=== PATIENT | female | born 1985 | race Caucasian/White ===

== ENCOUNTER 2019-07-15 07:38 | Inpatient (IN) ==
[2019-07-16] MEDS ORDERED: OXYTOCIN 30 UNITS/500 ML BAG IV PRN ×2 (08:27→08:33)
[2019-07-16 08:54] LABS: Hematocrit (blood only) 33.6 % (37-47); Hemoglobin 11.2 g/dL (12.0-16.0); Mean Corpuscular Hemoglobin 30.1 pg (25-34); Mean Corpuscular Volume 90.3 fL (80-100); Mean Platelet Volume 11.8 fL (7.4-10.4); Platelet Count 337 K/uL (130-400); RDW Coefficient of Variation 14.3 % (11.5-14.5); RDW Standard Deviation 46.9 fL (36.4-46.3); Red Blood Count 3.72 M/uL (4.2-5.4); White Blood Count 17.91 K/uL (4.8-10.8)
[2019-07-16 08:55] LABS: Mean Corpuscular Hgb Conc 33.3 g/dL (32-36)
--- NOTE | 2019-07-16 08:56 | History & Physical Report ---
Date of Service July 16, 2019 Assessment & Plan (1) Methadone use: (2) Chronic hypertension in : 34yo at 38.6 weeks GA. Presents for IOL for cHTN. 1. Fetus: Cat 1 2. Labor: Will start with SL cytotec 3. Vitals: Mild BPs 4. cHTN: Continue Labetalol 100mg BID. Continue to monitor 5. Methadone: Continue current dose/ UDS 6. Will consult social work History of Present Illness Primary Care Provider: Zach Meza 34yo at 38.6 weeks GA. Presents for IOL for cHTN. Patient course has has been complicated by medication controlled cHTN and is currently on Labetalol 100mg BID. Patient had cerclage in place for cervical insufficiency which was removed at 36 weeks. Patient has hx of substance abuse and is currently on Methadone. GBS -/ O+/ Rubella Immune Allergies Allergy/AdvReac Type Severity Reaction Status Date / Time latex Allergy Rash Verified 07/16/19 08:18 Home Medications Home Medications Medication Instructions Recorded Confirmed Type aspirin 81 mg PO DAILY 07/01/19 07/16/19 History docusate sodium [Colace] 100 mg PO DAILY 07/01/19 07/16/19 History ferrous sulfate [Iron (ferrous 325 mg PO DAILY 07/01/19 07/16/19 History sulfate)] labetalol 100 mg PO BID 07/01/19 07/16/19 History methadone 108 mg PO DAILY 07/01/19 07/16/19 History ondansetron 4 mg PO Q6H PRN 07/01/19 07/16/19 History vit-iron fum-folic ac 1 tab PO DAILY 07/01/19 07/16/19 History [ Vitamin] Patient History Social History Preferred Language: [place] Citizen Communication Ability: 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 Beliefs That Will Affect Care: None marital status: Single Current Living Situation: Significant Other Other Information That Helps Us Care for You: No Feels Safe at Home: Yes Safety Concerns: Feels Safe At This Time Smoking Status: Current every day smoker Tobacco Type: cigarettes ; Cigarettes Per Day: 15 ; Do You Dip or Chew Tobacco: No ; Second Hand Exposure: Yes ; Tobacco Cessation Education Requested by Patient: No Hx Alcohol Use: No Hx Substance Use: Yes substance use type: former substance user Substance Use Type Other:: IV heroin use x 5 years, methadone maintantence for the last 2 years. Last Used Substance: Unknown Physical Exam Constitutional: WD/WN, vitals as above Gastrointestinal (Abdomen): Percussion/Palpation: abdomen soft; abdomen nontender, no guarding and abdomen not rigid Genitourinary: no vaginal lesions, no adnexal mass Manual OB Exam: + cervical dilation 1 cm, + cervical effacement 30% and + station high OB Exam Monitor Tracing: + external FHT monitor used, + external uterine monitor used and + category I Results & Data Vital Signs (Past 12 Hours) Vital Signs Pulse BP 07/16/19 08:45 89 143/100 H 07/16/19 08:34 82 132/86 07/16/19 08:24 88 151/96 H
[2019-07-16] MEDS ORDERED: miSOPROStoL 50 MCG TAB SL SCH (09:00)
[2019-07-16] MEDS ORDERED: LABETALOL HCL 100 MG TAB PO SCH (09:00)
[2019-07-16] MEDS: METHADONE ORAL SOLN 2 MG/ML PO SCH (09:54)
[2019-07-16 10:07] LABS: Amphetamines+Metham, Urine Neg (Neg); Barbiturates, Urine Neg (Neg); Benzodiazepine, Urine Neg (Neg); Cocaine, Urine Neg (Neg); MDMA (Ecstacy), Urine Pos (Neg); Methadone, Urine Pos (Neg); Opiate, Urine Neg (Neg); Phencyclidine, Urine Neg (Neg)
[2019-07-16] MEDS ORDERED: INFLUENZA VIRUS QUAD VACCINE 0.5 ML SYR IM ONE (10:45)
[2019-07-16] MEDS ORDERED: INFLUENZA ADMINISTRATION CHARGE ONE (10:45)
[2019-07-16] MEDS ORDERED: CALCIUM CARBONATE 500 MG CHEWABLE TAB PO PRN (12:59)
[2019-07-16] MEDS: LACTATED RINGER'S 1,000 ML IV PRN ×2 (14:32→17:17)
[2019-07-16] MEDS: PATIENT'S OWN CONTROLLED MED PO SCH (15:40)
[2019-07-16] MEDS ORDERED: BUPIVACAINE 0.25% 30 ML VIAL ONE (16:45)
[2019-07-16] MEDS ORDERED: fentaNYL citrate 100 MCG/2 ML VIAL ONE (16:46)
[2019-07-16] MEDS ORDERED: ePHEDrine sulfate 50 MG/ML AMP ONE (16:46)
[2019-07-16] MEDS ORDERED: fentaNYL 2MCG/ML ROPIV 1.25MG/ML 100 ML BAG EPI ONE (16:46)
--- NOTE | 2019-07-16 17:07 | Anesthesiology Consultation ---
Date of Service July 16, 2019 Assessment & Plan (1) Encounter for pre-operative examination: Chart Review Chart Review: Acceptable Risk for Surgery and Acceptable Risk for Labor Epidural History Height/Weight Height: 5 ft 3 in Weight: 112.038 kg Allergies Allergy/AdvReac Type Severity Reaction Status Date / Time latex Allergy Rash Verified 07/16/19 08:18 Medications Home Medications Medication Instructions Recorded Confirmed Last Taken aspirin 81 mg PO DAILY 07/01/19 07/16/19 07/15/19 22:00 docusate sodium [Colace] 100 mg PO DAILY 07/01/19 07/16/19 07/15/19 22:00 ferrous sulfate [Iron (ferrous 325 mg PO DAILY 07/01/19 07/16/19 07/15/19 22:00 sulfate)] labetalol 100 mg PO BID 07/01/19 07/16/19 07/16/19 05:30 methadone 108 mg PO DAILY 07/01/19 07/16/19 07/16/19 05:30 ondansetron 4 mg PO Q6H PRN 07/01/19 07/16/19 07/16/19 04:30 vit-iron fum-folic ac 1 tab PO DAILY 07/01/19 07/16/19 07/15/19 22:00 [ Vitamin] Active Medications Generic Name Dose Route Start Last Admin Trade Name Coltenq PRN Reason Stop Dose Admin Calcium Carbonate 1,500 mg 07/16/19 12:59 07/16/19 14:32 Tums PO 08/15/19 12:58 1,500 mg BID PRN Administration Indigestion Lactated Ringer's 1,000 mls @ 125 mls/hr 07/16/19 08:27 07/16/19 16:35 Lr IV 07/18/19 08:26 999 mls/hr .Q8H PRN Infusion L&D Protocol Protocol Oxytocin 30 units in 500 mls @ 10 mls/hr 07/16/19 08:33 07/16/19 16:35 Pitocin IV 07/18/19 08:32 0.6 units/hr .Q24H PRN 10 mls/hr Labor Induction/Augmentation Titration Protocol 0.6 UNITS/HR Labetalol HCl 100 mg 07/16/19 09:00 07/16/19 09:54 Normodyne PO 08/15/19 08:59 Not Given BID DILSHAD Methadone HCl 108 mg 07/16/19 09:00 07/16/19 09:54 Methadone Hcl PO 07/30/19 08:59 Not Given DAILY DILSHAD Misoprostol 50 mcg 07/16/19 09:00 07/16/19 09:32 Cytotec SL 08/15/19 08:59 50 mcg BID DILSHAD Administration Non-Formulary Medication 1 ea 07/16/19 10:00 07/16/19 15:40 Patient's Own Controlled Med PO 07/30/19 09:59 Not Given DAILY DILSHAD Past Medical History Medical History History of cervical cerclage, currently Anxiety and depression No medications Chronic hypertension Exposure to hepatitis C tested positive, restest was negative H/O wisdom tooth extraction Heart murmur history History of chlamydia treated, negative during Iron deficiency anemia Methadone maintenance therapy patient Managed by [facility] [place] [facility] [place] Past Family History Family History Mother Heart disease Hypertension Thyroid disease Uncle Heart disease Grandfather (Maternal) Heart disease Grandmother (Maternal) Heart disease Aunt Stroke Diabetes Grandfather (Paternal) Diabetes Father Fibromyalgia Thyroid disease Dyslipidemia Past Surgical History Surgical History Hx of cerclage, currently H/O hernia repair History of oral surgery History of splenectomy S/P dilatation and curettage Social History Smoking Status: Current every day smoker tobacco type: cigarettes Smoking cigarettes per day: 15 Do You Dip or Chew Tobacco: No Hx Alcohol Use: No Hx Substance Use: Yes substance use type: former substance user Substance Use Type Other:: IV heroin use x 5 years, methadone maintantence for the last 2 years. Last Used Substance: Unknown Physical Exam Vital Signs Last Vital Signs Temp 36.7 C 07/16/19 17:01 Pulse 66 07/16/19 17:05 Resp 20 07/16/19 17:01 BP 175/105 H 07/16/19 16:35 Pulse Ox 94 07/16/19 17:05 Testing Laboratory Results 07/16/19 08:46
[2019-07-16] MEDS ORDERED: NALOXONE HCL 0.4 MG/1 ML VIAL/CARP IV PRN (17:40)
[2019-07-16] MEDS ORDERED: ePHEDrine sulfate 50 MG/ML AMP IV PRN (17:40)
[2019-07-16] MEDS ORDERED: NALOXONE HCL 1 MG in SODIUM CHLORIDE 0.9% 1000ML 1,000 ML IV PRN (17:40)
--- NOTE | 2019-07-16 18:06 | Labor Progress Brief Note ---
Date of Service July 16, 2019 Subjective Reason For Note: Routine Evaluation Assessment & Plan (1) Methadone use: (2) Chronic hypertension in : 34yo at 38.6 weeks GA. Presents for IOL for cHTN. 1. Fetus: Cat 1 2. Labor: S/p SL cytotec, AROM clr, continue oxytocin 3. Vitals: Mostly Mild BPs. Occasional severe range BPs. PIH labs P. Asymptomatic 4. cHTN: Continue Labetalol 100mg BID. Continue to monitor 5. Methadone: Continue current dose/ UDS 6. Will consult social work Physical Exam Genitourinary: Manual OB Exam: + cervical dilation 3 cm, + cervical effacement 60%, + station -2 and + amniotic fluid clear OB Exam Monitor Tracing: + external FHT monitor used, + external uterine monitor used and + category I Results & Data Vital Signs (Past 12 Hours) Vital Signs Temp Pulse Resp BP Pulse Ox 07/16/19 18:00 70 96 07/16/19 17:58 68 151/91 H 07/16/19 17:55 80 144/82 H 97 07/16/19 17:50 74 97 07/16/19 17:46 88 143/81 H 07/16/19 17:45 71 96 07/16/19 17:44 70 145/80 H 07/16/19 17:42 80 150/82 H 07/16/19 17:40 71 148/75 H 96 07/16/19 17:38 65 146/75 H 07/16/19 17:36 76 150/70 H 07/16/19 17:35 75 151/65 H 96 07/16/19 17:32 75 183/99 H 07/16/19 17:30 81 97 07/16/19 17:25 84 99 07/16/19 17:20 93 H 98 07/16/19 17:15 81 100 07/16/19 17:10 76 93 07/16/19 17:09 75 99 07/16/19 17:05 66 94 07/16/19 17:04 69 95 07/16/19 17:01 36.7 C 20 07/16/19 16:35 79 175/105 H 07/16/19 15:35 79 171/84 H 07/16/19 14:35 81 142/88 H 07/16/19 12:10 36.7 C 78 20 128/64 07/16/19 08:52 36.7 C 20 07/16/19 08:45 89 143/100 H 07/16/19 08:34 82 132/86 07/16/19 08:24 88 151/96 H
[2019-07-16] MEDS ORDERED: LABETALOL HCL IV 5 MG/ML 20ML IV STA (19:09)
[2019-07-16] MEDS ORDERED: LABETALOL HCL IV 5 MG/ML 20ML IV ONE (19:11)
[2019-07-16 19:26] LABS: Basophils # (auto) 0.05 K/uL (0-0.2); Basophils % (auto) 0.3 %; Eosinophils # (auto) 0.23 K/uL (0-0.5); Eosinophils % (auto) 1.3 %; Hematocrit (blood only) 32.5 % (37-47); Hemoglobin 10.7 g/dL (12.0-16.0); Immature Granulocytes # (auto) 0.12 K/uL (0.00-0.02); Immature Granulocytes % (auto) 0.7 %; Lymphocytes % (auto) 19.2 %; Mean Corpuscular Hemoglobin 29.7 pg (25-34); Mean Corpuscular Volume 90.3 fL (80-100); Mean Platelet Volume 11.8 fL (7.4-10.4); Monocytes # (auto) 2.03 K/uL (0.11-0.59); Monocytes % (auto) 11.2 %; Neutrophils # (auto) 12.26 K/uL (1.4-6.5); Neutrophils % (auto) 67.3 %; Platelet Count 304 K/uL (130-400); RDW Coefficient of Variation 14.4 % (11.5-14.5); RDW Standard Deviation 47.5 fL (36.4-46.3); White Blood Count 18.19 K/uL (4.8-10.8)
[2019-07-16 19:44] LABS: Est GFR (African American) 141.2; Est GFR (Non-African American) 121.8
[2019-07-16] MEDS: LABETALOL HCL 200 MG TAB PO SCH (19:44)
[2019-07-16 19:46] LABS: Mean Corpuscular Hgb Conc 32.9 g/dL (32-36)
[2019-07-16] MEDS: ONDANSETRON INJ 2 MG/ML 2 ML VIAL IV PRN (19:48)
[2019-07-16] MEDS: fentaNYL 2MCG/ML ROPIV 1.25MG/ML 100 ML BAG EPI PRN (20:20)
[2019-07-16] MEDS ORDERED: Nursing to Pharmacy Communication ONE (20:36)
[2019-07-16] MEDS ORDERED: LIDOCAINE/EPINEPHRINE 2% 1:200,000 20 ML SDV ONE (21:10)
--- NOTE | 2019-07-16 23:48 | Labor Progress Brief Note ---
Date of Service July 16, 2019 Subjective Reason For Note: Routine Evaluation Assessment & Plan (1) Methadone use: (2) Chronic hypertension in : 34yo at 38.6 weeks GA. Presents for IOL for cHTN. 1. Fetus: Cat 1 2. Labor: S/p SL cytotec, AROM clr, continue oxytocin 3. Vitals: Mostly Mild BPs. Occasional severe range BPs. PIH labs WNL. Asymptomatic 4. cHTN: Continue Labetalol 200mg BID. Continue to monitor 5. Methadone: Continue current dose/ UDS 6. Will consult social work Physical Exam Genitourinary: OB Exam Abdomen: + vertex Manual OB Exam: + cervical dilation (4-5), + cervical effacement 70%, + station -2 and + amniotic fluid clear OB Exam Monitor Tracing: + external FHT monitor used, + intra-uterine pressure catheter used and + category I Results & Data Vital Signs (Past 12 Hours) Vital Signs Temp Pulse Resp BP Pulse Ox 07/16/19 23:41 74 98 07/16/19 23:39 75 144/73 H 07/16/19 23:36 73 96 07/16/19 23:31 73 96 07/16/19 23:26 70 97 07/16/19 23:25 69 164/75 H 07/16/19 23:21 70 97 07/16/19 23:16 69 97 07/16/19 23:11 87 97 07/16/19 23:08 80 143/86 H 07/16/19 23:06 72 96 07/16/19 23:01 77 97 07/16/19 23:00 18 07/16/19 22:56 76 96 07/16/19 22:53 74 158/80 H 07/16/19 22:51 73 97 07/16/19 22:46 73 96 07/16/19 22:41 71 95 07/16/19 22:38 69 151/72 H 07/16/19 22:36 81 97 07/16/19 22:31 83 95 07/16/19 22:30 18 07/16/19 22:26 69 93 07/16/19 22:23 71 137/70 07/16/19 22:21 75 93 07/16/19 22:16 68 94 07/16/19 22:11 74 92 07/16/19 22:09 70 145/74 H 07/16/19 22:06 74 93 07/16/19 22:01 73 95 07/16/19 22:00 18 07/16/19 21:56 69 93 07/16/19 21:55 68 156/74 H 07/16/19 21:51 70 91 07/16/19 21:47 72 91 07/16/19 21:46 70 91 07/16/19 21:42 73 90 07/16/19 21:41 71 91 07/16/19 21:39 69 149/72 H 07/16/19 21:36 71 91 07/16/19 21:35 71 91 07/16/19 21:34 68 142/73 H 07/16/19 21:31 70 90 07/16/19 21:30 18 07/16/19 21:28 72 157/82 H 07/16/19 21:26 70 91 07/16/19 21:25 68 146/78 H 91 07/16/19 21:21 71 91 07/16/19 21:20 67 165/81 H 91 07/16/19 21:16 71 95 07/16/19 21:13 36.7 C 66 164/84 H 07/16/19 21:11 66 161/84 H 96 07/16/19 21:09 67 170/88 H 07/16/19 21:07 64 172/87 H 07/16/19 21:06 64 97 07/16/19 21:05 67 172/85 H 07/16/19 21:03 65 173/84 H 07/16/19 21:01 70 183/89 H 96 07/16/19 20:59 75 149/87 H 07/16/19 20:56 71 95 07/16/19 20:51 76 98 07/16/19 20:49 72 145/79 H 07/16/19 20:46 83 96 07/16/19 20:41 73 97 07/16/19 20:40 73 159/81 H 07/16/19 20:36 77 97 07/16/19 20:31 73 96 07/16/19 20:30 18 07/16/19 20:29 72 172/89 H 07/16/19 20:26 79 97 07/16/19 20:20 73 96 07/16/19 20:16 83 156/66 H 07/16/19 20:15 81 97 07/16/19 20:10 71 97 07/16/19 20:09 82 161/79 H 07/16/19 20:05 70 159/77 H 95 07/16/19 20:00 67 18 152/72 H 96 07/16/19 19:55 73 96 07/16/19 19:54 71 153/74 H 07/16/19 19:50 71 96 07/16/19 19:49 70 143/67 H 07/16/19 19:45 71 97 07/16/19 19:44 70 142/65 H 07/16/19 19:41 68 152/70 H 07/16/19 19:40 68 97 07/16/19 19:35 71 98 07/16/19 19:33 75 157/68 H 07/16/19 19:31 69 155/71 H 07/16/19 19:30 69 99 07/16/19 19:29 68 174/75 H 07/16/19 19:25 72 149/68 H 99 07/16/19 19:20 68 99 07/16/19 19:15 75 98 07/16/19 19:14 36.6 C 07/16/19 19:11 69 191/85 H 07/16/19 19:10 69 98 07/16/19 19:05 70 98 07/16/19 19:04 73 171/94 H 07/16/19 19:00 72 98 07/16/19 18:55 74 96 07/16/19 18:54 72 183/97 H 07/16/19 18:50 71 97 07/16/19 18:45 69 96 07/16/19 18:40 74 171/90 H 93 07/16/19 18:36 76 89 L 07/16/19 18:35 74 96 07/16/19 18:30 70 97 07/16/19 18:25 73 174/90 H 96 07/16/19 18:20 72 96 07/16/19 18:15 75 97 07/16/19 18:10 79 97 07/16/19 18:09 71 148/78 H 07/16/19 18:05 73 97 07/16/19 18:03 74 164/91 H 07/16/19 18:00 70 96 07/16/19 17:58 68 151/91 H 07/16/19 17:55 80 144/82 H 97 07/16/19 17:50 74 97 07/16/19 17:46 88 143/81 H 07/16/19 17:45 71 96 07/16/19 17:44 70 145/80 H 07/16/19 17:42 80 150/82 H 07/16/19 17:40 71 148/75 H 96 07/16/19 17:38 65 146/75 H 07/16/19 17:36 76 150/70 H 07/16/19 17:35 75 151/65 H 96 07/16/19 17:32 75 183/99 H 07/16/19 17:30 81 97 07/16/19 17:25 84 99 07/16/19 17:20 93 H 98 07/16/19 17:15 81 100 07/16/19 17:10 76 93 07/16/19 17:09 75 99 07/16/19 17:05 66 94 07/16/19 17:04 69 95 07/16/19 17:01 36.7 C 20 07/16/19 16:35 79 175/105 H 07/16/19 15:35 79 171/84 H 07/16/19 14:35 81 142/88 H 07/16/19 12:10 36.7 C 78 20 128/64
[2019-07-17] MEDS: LACTATED RINGER'S 1,000 ML IV PRN ×2 (00:15→05:30)
[2019-07-17] MEDS: fentaNYL 2MCG/ML ROPIV 1.25MG/ML 100 ML BAG EPI PRN ×2 (00:35→05:20)
[2019-07-17] MEDS: ONDANSETRON INJ 2 MG/ML 2 ML VIAL IV PRN ×2 (03:02→09:06)
--- NOTE | 2019-07-17 03:53 | Labor Progress Brief Note ---
Date of Service July 17, 2019 Subjective Reason For Note: Routine Evaluation Assessment & Plan (1) Methadone use: (2) Chronic hypertension in : 34yo at 38.6 weeks GA. Presents for IOL for cHTN. 1. Fetus: Cat 1 2. Labor: S/p SL cytotec, AROM clr, continue oxytocin 3. Vitals: Mostly Mild BPs. severe range BPs while patient is painful. comfortable now will continue to monitor. PIH labs WNL. Asymptomatic 4. cHTN: Continue Labetalol 200mg BID. Continue to monitor 5. Methadone: Continue current dose/ UDS 6. Will consult social work Physical Exam Genitourinary: Manual OB Exam: + cervical dilation (5.5), + cervical effacement 80%, + station -2 and + amniotic fluid clear OB Exam Monitor Tracing: + external FHT monitor used, + intra-uterine pressure catheter used and + category I Results & Data Vital Signs (Past 12 Hours) Vital Signs Temp Pulse Resp BP Pulse Ox 07/17/19 03:46 88 96 07/17/19 03:41 79 95 07/17/19 03:39 77 175/88 H 07/17/19 03:37 73 91 07/17/19 03:36 75 91 07/17/19 03:35 71 168/80 H 07/17/19 03:33 71 173/79 H 07/17/19 03:32 73 173/85 H 89 L 07/17/19 03:31 73 92 07/17/19 03:30 75 171/82 H 07/17/19 03:29 72 181/89 H 07/17/19 03:28 74 183/87 H 07/17/19 03:26 80 168/84 H 100 07/17/19 03:24 75 172/88 H 07/17/19 03:21 83 99 07/17/19 03:16 75 98 07/17/19 03:11 80 97 07/17/19 03:10 88 178/105 H 07/17/19 03:06 79 98 07/17/19 03:01 86 99 07/17/19 02:56 78 98 07/17/19 02:55 84 174/80 H 07/17/19 02:51 88 99 07/17/19 02:47 86 86 L 07/17/19 02:46 83 95 07/17/19 02:41 76 96 07/17/19 02:38 73 176/81 H 07/17/19 02:36 86 93 07/17/19 02:31 86 95 07/17/19 02:26 74 97 07/17/19 02:23 78 175/103 H 07/17/19 02:21 87 98 07/17/19 02:16 82 99 07/17/19 02:11 77 99 07/17/19 02:08 85 165/100 H 07/17/19 02:06 81 99 07/17/19 02:01 85 99 07/17/19 01:56 91 H 100 07/17/19 01:53 93 H 162/95 H 07/17/19 01:51 85 94 07/17/19 01:46 94 H 99 07/17/19 01:41 90 99 07/17/19 01:38 68 153/85 H 07/17/19 01:36 80 98 07/17/19 01:31 95 H 98 07/17/19 01:26 84 98 07/17/19 01:24 75 177/82 H 07/17/19 01:21 76 98 07/17/19 01:16 81 98 07/17/19 01:11 85 98 07/17/19 01:09 71 168/80 H 07/17/19 01:06 81 97 07/17/19 01:01 75 95 07/17/19 00:56 74 94 07/17/19 00:53 75 141/77 H 89 L 07/17/19 00:51 74 94 07/17/19 00:46 76 96 07/17/19 00:41 94 H 96 07/17/19 00:38 71 135/70 07/17/19 00:36 70 94 07/17/19 00:31 77 96 07/17/19 00:26 71 95 07/17/19 00:23 71 128/68 07/17/19 00:21 72 97 07/17/19 00:19 68 154/71 H 07/17/19 00:16 77 95 07/17/19 00:12 76 167/79 H 07/17/19 00:11 81 163/72 H 98 07/17/19 00:10 93 H 165/81 H 07/17/19 00:09 81 155/75 H 07/17/19 00:06 75 97 07/17/19 00:01 79 97 07/16/19 23:56 81 97 07/16/19 23:53 82 146/73 H 07/16/19 23:51 82 95 07/16/19 23:46 70 96 07/16/19 23:41 74 98 07/16/19 23:39 75 144/73 H 07/16/19 23:36 73 96 07/16/19 23:31 73 96 07/16/19 23:26 70 97 07/16/19 23:25 69 164/75 H 07/16/19 23:21 70 97 07/16/19 23:16 69 97 07/16/19 23:11 87 97 07/16/19 23:08 80 143/86 H 07/16/19 23:06 72 96 07/16/19 23:01 77 97 07/16/19 23:00 18 07/16/19 22:56 76 96 07/16/19 22:53 74 158/80 H 07/16/19 22:51 73 97 07/16/19 22:46 73 96 07/16/19 22:41 71 95 07/16/19 22:38 69 151/72 H 07/16/19 22:36 81 97 07/16/19 22:31 83 95 07/16/19 22:30 18 07/16/19 22:26 69 93 07/16/19 22:23 71 137/70 07/16/19 22:21 75 93 07/16/19 22:16 68 94 07/16/19 22:11 74 92 07/16/19 22:09 70 145/74 H 07/16/19 22:06 74 93 07/16/19 22:01 73 95 07/16/19 22:00 18 07/16/19 21:56 69 93 07/16/19 21:55 68 156/74 H 07/16/19 21:51 70 91 07/16/19 21:47 72 91 07/16/19 21:46 70 91 07/16/19 21:42 73 90 07/16/19 21:41 71 91 07/16/19 21:39 69 149/72 H 07/16/19 21:36 71 91 07/16/19 21:35 71 91 07/16/19 21:34 68 142/73 H 07/16/19 21:31 70 90 07/16/19 21:30 18 07/16/19 21:28 72 157/82 H 07/16/19 21:26 70 91 07/16/19 21:25 68 146/78 H 91 07/16/19 21:21 71 91 07/16/19 21:20 67 165/81 H 91 07/16/19 21:16 71 95 07/16/19 21:13 36.7 C 66 164/84 H 07/16/19 21:11 66 161/84 H 96 07/16/19 21:09 67 170/88 H 07/16/19 21:07 64 172/87 H 07/16/19 21:06 64 97 07/16/19 21:05 67 172/85 H 07/16/19 21:03 65 173/84 H 07/16/19 21:01 70 183/89 H 96 07/16/19 20:59 75 149/87 H 07/16/19 20:56 71 95 07/16/19 20:51 76 98 07/16/19 20:49 72 145/79 H 07/16/19 20:46 83 96 07/16/19 20:41 73 97 07/16/19 20:40 73 159/81 H 07/16/19 20:36 77 97 07/16/19 20:31 73 96 07/16/19 20:30 18 07/16/19 20:29 72 172/89 H 07/16/19 20:26 79 97 07/16/19 20:20 73 96 07/16/19 20:16 83 156/66 H 07/16/19 20:15 81 97 07/16/19 20:10 71 97 07/16/19 20:09 82 161/79 H 07/16/19 20:05 70 159/77 H 95 07/16/19 20:00 67 18 152/72 H 96 07/16/19 19:55 73 96 07/16/19 19:54 71 153/74 H 07/16/19 19:50 71 96 07/16/19 19:49 70 143/67 H 07/16/19 19:45 71 97 07/16/19 19:44 70 142/65 H 07/16/19 19:41 68 152/70 H 07/16/19 19:40 68 97 07/16/19 19:35 71 98 07/16/19 19:33 75 157/68 H 07/16/19 19:31 69 155/71 H 07/16/19 19:30 69 99 07/16/19 19:29 68 174/75 H 07/16/19 19:25 72 149/68 H 99 07/16/19 19:20 68 99 07/16/19 19:15 75 98 07/16/19 19:14 36.6 C 07/16/19 19:11 69 191/85 H 07/16/19 19:10 69 98 07/16/19 19:05 70 98 07/16/19 19:04 73 171/94 H 07/16/19 19:00 72 98 07/16/19 18:55 74 96 07/16/19 18:54 72 183/97 H 07/16/19 18:50 71 97 07/16/19 18:45 69 96 07/16/19 18:40 74 171/90 H 93 07/16/19 18:36 76 89 L 07/16/19 18:35 74 96 07/16/19 18:30 70 97 07/16/19 18:25 73 174/90 H 96 07/16/19 18:20 72 96 07/16/19 18:15 75 97 07/16/19 18:10 79 97 07/16/19 18:09 71 148/78 H 07/16/19 18:05 73 97 07/16/19 18:03 74 164/91 H 07/16/19 18:00 70 96 07/16/19 17:58 68 151/91 H 07/16/19 17:55 80 144/82 H 97 07/16/19 17:50 74 97 07/16/19 17:46 88 143/81 H 07/16/19 17:45 71 96 07/16/19 17:44 70 145/80 H 07/16/19 17:42 80 150/82 H 07/16/19 17:40 71 148/75 H 96 07/16/19 17:38 65 146/75 H 07/16/19 17:36 76 150/70 H 07/16/19 17:35 75 151/65 H 96 07/16/19 17:32 75 183/99 H 07/16/19 17:30 81 97 07/16/19 17:25 84 99 07/16/19 17:20 93 H 98 07/16/19 17:15 81 100 07/16/19 17:10 76 93 07/16/19 17:09 75 99 07/16/19 17:05 66 94 07/16/19 17:04 69 95 07/16/19 17:01 36.7 C 20 07/16/19 16:35 79 175/105 H
[2019-07-17] MEDS ORDERED: fentaNYL citrate 100 MCG/2 ML VIAL ONE ×2 (07:50→08:02)
[2019-07-17] MEDS ORDERED: BUPIVACAINE 0.25% 30 ML VIAL ONE (07:50)
--- NOTE | 2019-07-17 07:56 | Labor Progress Brief Note ---
Date of Service July 17, 2019 Subjective Reason For Note: Routine Evaluation Assessment & Plan (1) Methadone use: (2) Chronic hypertension in : 34yo at 38.6 weeks GA. Presents for IOL for cHTN. 1. Fetus: Cat 1 2. Labor: S/p SL cytotec, AROM clr, continue oxytocin 3. Vitals: Mostly Mild BPs. severe range BPs while patient is painful. comfortable now will continue to monitor. PIH labs WNL. Asymptomatic 4. cHTN: Continue Labetalol 200mg BID. Continue to monitor 5. Methadone: Continue current dose/ UDS 6. Will consult social work Physical Exam Genitourinary: Manual OB Exam: + cervical dilation 6 cm, + cervical effacement 90%, + station 0 and + amniotic fluid clear OB Exam Monitor Tracing: + scalp electrode used, + intra-uterine pressure catheter used, + category I and + normal FHT variability Results & Data Vital Signs (Past 12 Hours) Vital Signs Temp Pulse Resp BP Pulse Ox 07/17/19 07:53 90 150/73 H 07/17/19 07:51 89 98 07/17/19 07:46 79 97 07/17/19 07:42 104 H 90 07/17/19 07:41 96 H 92 07/17/19 07:39 97 H 174/89 H 07/17/19 07:36 86 98 07/17/19 07:31 36.9 C 81 40 H 98 07/17/19 07:26 73 94 07/17/19 07:24 75 170/75 H 07/17/19 07:21 74 96 07/17/19 07:16 85 97 07/17/19 07:11 79 94 07/17/19 07:09 69 166/85 H 07/17/19 07:06 80 96 07/17/19 07:01 74 95 07/17/19 06:56 91 H 96 07/17/19 06:55 97 H 88 L 07/17/19 06:53 78 167/89 H 07/17/19 06:51 89 94 07/17/19 06:46 82 94 07/17/19 06:41 81 91 07/17/19 06:38 98 H 165/89 H 91 07/17/19 06:36 74 92 07/17/19 06:32 77 91 07/17/19 06:31 71 92 07/17/19 06:27 75 91 07/17/19 06:26 74 91 07/17/19 06:25 75 146/81 H 07/17/19 06:21 79 92 07/17/19 06:16 74 93 07/17/19 06:11 74 92 07/17/19 06:10 71 159/83 H 89 L 07/17/19 06:08 67 169/91 H 07/17/19 06:06 76 168/87 H 95 07/17/19 06:05 36.6 C 20 07/17/19 06:03 75 91 07/17/19 06:01 76 170/84 H 93 07/17/19 06:00 85 167/83 H 07/17/19 05:59 74 171/87 H 07/17/19 05:57 76 168/86 H 91 07/17/19 05:56 72 91 07/17/19 05:55 86 181/88 H 07/17/19 05:54 73 165/82 H 07/17/19 05:53 86 177/90 H 07/17/19 05:51 67 89 L 07/17/19 05:50 75 174/86 H 07/17/19 05:48 83 185/94 H 07/17/19 05:47 84 165/89 H 07/17/19 05:46 97 H 97 07/17/19 05:41 88 98 07/17/19 05:40 76 172/89 H 07/17/19 05:36 95 H 100 07/17/19 05:31 84 96 07/17/19 05:26 80 95 07/17/19 05:24 76 137/70 07/17/19 05:21 84 93 07/17/19 05:16 77 96 07/17/19 05:11 78 96 07/17/19 05:08 75 161/72 H 07/17/19 05:06 87 94 07/17/19 05:04 36.8 C 24 07/17/19 05:01 79 94 07/17/19 04:56 86 96 07/17/19 04:53 78 177/84 H 90 07/17/19 04:51 77 93 07/17/19 04:46 78 92 07/17/19 04:45 76 91 07/17/19 04:41 75 91 07/17/19 04:39 74 160/81 H 88 L 07/17/19 04:36 74 94 07/17/19 04:31 71 93 07/17/19 04:26 82 93 07/17/19 04:24 73 91 07/17/19 04:23 75 156/74 H 07/17/19 04:21 74 92 07/17/19 04:19 73 91 07/17/19 04:16 71 91 07/17/19 04:11 74 91 07/17/19 04:09 72 154/72 H 07/17/19 04:06 76 92 07/17/19 04:01 74 91 07/17/19 04:00 36.8 C 72 18 96 07/17/19 03:56 73 93 07/17/19 03:53 72 159/77 H 90 07/17/19 03:51 72 94 07/17/19 03:46 88 96 07/17/19 03:41 79 95 07/17/19 03:39 77 175/88 H 07/17/19 03:37 73 91 07/17/19 03:36 75 91 07/17/19 03:35 71 168/80 H 07/17/19 03:33 71 173/79 H 07/17/19 03:32 73 173/85 H 89 L 07/17/19 03:31 73 92 07/17/19 03:30 75 171/82 H 07/17/19 03:29 72 181/89 H 07/17/19 03:28 74 183/87 H 07/17/19 03:26 80 168/84 H 100 07/17/19 03:24 75 172/88 H 07/17/19 03:21 83 99 07/17/19 03:16 75 98 07/17/19 03:11 80 97 07/17/19 03:10 88 178/105 H 07/17/19 03:06 79 98 07/17/19 03:01 86 99 07/17/19 03:00 18 07/17/19 02:56 78 98 07/17/19 02:55 84 174/80 H 07/17/19 02:51 88 99 07/17/19 02:47 86 86 L 07/17/19 02:46 83 95 07/17/19 02:41 76 96 07/17/19 02:38 73 176/81 H 07/17/19 02:36 86 93 07/17/19 02:31 86 95 07/17/19 02:26 74 97 07/17/19 02:23 78 175/103 H 07/17/19 02:21 87 98 07/17/19 02:16 82 99 07/17/19 02:11 77 99 07/17/19 02:08 85 165/100 H 07/17/19 02:06 81 99 07/17/19 02:01 85 99 07/17/19 02:00 36.6 C 20 95 07/17/19 01:56 91 H 100 07/17/19 01:53 93 H 162/95 H 07/17/19 01:51 85 94 07/17/19 01:46 94 H 99 07/17/19 01:41 90 99 07/17/19 01:38 68 153/85 H 07/17/19 01:36 80 98 07/17/19 01:31 95 H 98 07/17/19 01:26 84 98 07/17/19 01:24 75 177/82 H 07/17/19 01:21 76 98 07/17/19 01:16 81 98 07/17/19 01:11 85 98 07/17/19 01:09 71 168/80 H 07/17/19 01:06 81 97 07/17/19 01:01 75 95 07/17/19 01:00 18 07/17/19 00:56 74 94 07/17/19 00:53 75 141/77 H 89 L 07/17/19 00:51 74 94 07/17/19 00:46 76 96 07/17/19 00:41 94 H 96 07/17/19 00:38 71 135/70 07/17/19 00:36 70 94 07/17/19 00:31 77 96 07/17/19 00:26 71 95 07/17/19 00:23 71 128/68 07/17/19 00:21 72 97 07/17/19 00:19 68 154/71 H 07/17/19 00:16 77 95 07/17/19 00:12 76 167/79 H 07/17/19 00:11 81 163/72 H 98 07/17/19 00:10 93 H 165/81 H 07/17/19 00:09 81 155/75 H 07/17/19 00:06 75 97 07/17/19 00:01 79 97 07/17/19 00:00 36.8 C 20 95 07/16/19 23:56 81 97 07/16/19 23:53 82 146/73 H 07/16/19 23:51 82 95 07/16/19 23:46 70 96 07/16/19 23:41 74 98 07/16/19 23:39 75 144/73 H 07/16/19 23:36 73 96 07/16/19 23:31 73 96 07/16/19 23:26 70 97 07/16/19 23:25 69 164/75 H 07/16/19 23:21 70 97 07/16/19 23:16 69 97 07/16/19 23:11 87 97 07/16/19 23:08 80 143/86 H 07/16/19 23:06 72 96 07/16/19 23:01 77 97 07/16/19 23:00 18 07/16/19 22:56 76 96 07/16/19 22:53 74 158/80 H 07/16/19 22:51 73 97 07/16/19 22:46 73 96 07/16/19 22:41 71 95 07/16/19 22:38 69 151/72 H 07/16/19 22:36 81 97 07/16/19 22:31 83 95 07/16/19 22:30 18 07/16/19 22:26 69 93 07/16/19 22:23 71 137/70 07/16/19 22:21 75 93 07/16/19 22:16 68 94 07/16/19 22:11 74 92 07/16/19 22:09 70 145/74 H 07/16/19 22:06 74 93 07/16/19 22:01 73 95 07/16/19 22:00 18 07/16/19 21:56 69 93 07/16/19 21:55 68 156/74 H 07/16/19 21:51 70 91 07/16/19 21:47 72 91 07/16/19 21:46 70 91 07/16/19 21:42 73 90 07/16/19 21:41 71 91 07/16/19 21:39 69 149/72 H 07/16/19 21:36 71 91 07/16/19 21:35 71 91 07/16/19 21:34 68 142/73 H 07/16/19 21:31 70 90 07/16/19 21:30 18 07/16/19 21:28 72 157/82 H 07/16/19 21:26 70 91 07/16/19 21:25 68 146/78 H 91 07/16/19 21:21 71 91 07/16/19 21:20 67 165/81 H 91 07/16/19 21:16 71 95 07/16/19 21:13 36.7 C 66 164/84 H 07/16/19 21:11 66 161/84 H 96 07/16/19 21:09 67 170/88 H 07/16/19 21:07 64 172/87 H 07/16/19 21:06 64 97 07/16/19 21:05 67 172/85 H 07/16/19 21:03 65 173/84 H 07/16/19 21:01 70 183/89 H 96 07/16/19 20:59 75 149/87 H 07/16/19 20:56 71 95 07/16/19 20:51 76 98 07/16/19 20:49 72 145/79 H 07/16/19 20:46 83 96 07/16/19 20:41 73 97 07/16/19 20:40 73 159/81 H 07/16/19 20:36 77 97 07/16/19 20:31 73 96 07/16/19 20:30 18 07/16/19 20:29 72 172/89 H 07/16/19 20:26 79 97 07/16/19 20:20 73 96 07/16/19 20:16 83 156/66 H 07/16/19 20:15 81 97 07/16/19 20:10 71 97 07/16/19 20:09 82 161/79 H 07/16/19 20:05 70 159/77 H 95 07/16/19 20:00 67 18 152/72 H 96 07/16/19 19:55 73 96
[2019-07-17] MEDS ORDERED: CARBOPROST TROMETHAMINE 250 MCG/ML AMPUL ONE (08:29)
--- NOTE | 2019-07-17 08:49 | Delivery Summary ---
Vaginal Delivery Summary Date of Service July 17, 2019 Vaginal Delivery Summary Vaginal Delivery Summary: Pre-delivery diagnoses: 34yo @ 38w2d, IOL for cHTN, methadone use, cervical insufficiency with cerclage during this , exposure to Hep C (negative testing) Post-delivery diagnoses: same, shoulder dystocia Procedure: spontaneous vaginal delivery, repair of 2nd degree perineal laceration Surgeon: Zeinab Brumfield DO Complications: none Findings: Viable female . Apgars: 7/9 . Weight pending, please see nursery records Estimated blood loss: 400ml Description of delivery: I took over care of patient this morning, she reported significant pain and was found to be completely dilated at +2 station. She had epidural anesthesia. She then began to push. She spontaneously vaginally delivered a viable from the cephalic presentation. There was a mild shoulder dystocia, requiring McRobert's maneuver. An attempt was made to deliver the posterior shoulder and posterior arm, and then patient was repositioned in McRobert's and the anterior shoulder delivered spontaneously. The head delivered in [place] position. The anterior shoulder delivered, followed by the posterior shoulder, followed by the body. The baby was placed on m other's abdomen the cord was doubly clamped and cut. The baby was immediately handed off to the peds team for resuscitation, resulting in a spontaneous cry. A segment was retained for cord gases. Cord blood was obtained. The placenta was delivered spontaneously intact with a 3-vessel cord. The uterus and vagina were swept of clots and debris. Initially, the uterus felt atonic and clots were ex pressed, therefore 1 dose of hemabate was ordered to be given stat. IV pitocin was given. The uterus became firm. The cervix, vagina, and perineum were inspected and a 2nd degree lacerations was noted and repaired with 3-0 vicryl. There were slightly oozy bilateral superficial vaginal lacerations and a right periurethral laceration. Denise powder was used along these surfaces. Excellent hemostasis was observed. The mother and baby are recovering in stable and good condition. Baby taken to nursery per maternal request. Baby moving all limbs and crying in nursery. Sponge, needle, and instrument counts were correct x 2. Zeinab Brumfield DO [facility]OO[facility]
[2019-07-17 09:03] LABS: Base Excess Cord Arterial Bld -2.7 mEq/L (-9-1.8); CO2 Cord Arterial Blood 46 mmHg (39.1-73.5); HCO3 Cord Arterial Blood 23 mmol/L (19.7-28.5); pH Cord Arterial Blood 7.33 (7.1-7.38)
[2019-07-17 09:05] LABS: Oxygen Sat Cord Arterial Blood < 60.0 % (<60)
[2019-07-17 09:07] LABS: Base Excess Cord Venous Blood -1.4 mEq/L (-7.7-1.9); Cord Venous Blood HCO3 22 mmol/L (18.4-26.8); Cord Venous Blood PCO2 34 mmHg (30.4-57.2); Cord Venous Blood PO2 26 mmHg (14.1-43.3); Cord Venous Blood pH 7.43 (7.20-7.44)
[2019-07-17] MEDS: METHADONE ORAL SOLN 2 MG/ML PO SCH (09:46)
[2019-07-17] MEDS ORDERED: DIPHTHERIA/TETANUS/PERTUSSIS 0.5 ML SYR/VIAL IM ONE (10:09)
[2019-07-17] MEDS ORDERED: ACETAMINOPHEN 325 MG TAB PO PRN (10:09)
[2019-07-17] MEDS ORDERED: OXYCODONE/ACETAMINOPHEN 5mg/325mg TAB PO PRN (10:09)
[2019-07-17] MEDS ORDERED: SUPERCREAM 0.870% 15 GM JAR EXT PRN (10:09)
[2019-07-17] MEDS ORDERED: CARBOPROST TROMETHAMINE 250 MCG/ML AMPUL IM ONE (10:09)
[2019-07-17] MEDS ORDERED: BENZOCAINE 20% AER SPR 82.5 GM CAN EXT PRN (10:09)
[2019-07-17] MEDS ORDERED: OXYTOCIN 30 UNITS/500 ML BAG IV PRN (10:09)
[2019-07-17] MEDS ORDERED: LACTATED RINGER'S 1,000 ML IV SCH (10:09)
[2019-07-17] MEDS ORDERED: HYDROCORTISONE ACETATE 25 MG SUPP PR PRN (10:09)
[2019-07-17] MEDS ORDERED: bisacodyL 10 MG SUPP PR PRN (10:09)
[2019-07-17] MEDS: LABETALOL HCL 200 MG TAB PO SCH ×2 (10:12→21:10)
[2019-07-17] MEDS ORDERED: LABETALOL HCL 100 MG TAB PO ONE (10:44)
[2019-07-17] MEDS: IBUPROFEN 600 MG TAB PO PRN ×2 (10:55→21:10)
[2019-07-17] MEDS: PATIENT'S OWN CONTROLLED MED PO SCH (11:02)
[2019-07-17 11:18] LABS: Hematocrit (blood only) 34.3 % (37-47); Hemoglobin 11.6 g/dL (12.0-16.0); Mean Corpuscular Hgb Conc 33.8 g/dL (32-36); Mean Corpuscular Volume 88.6 fL (80-100); Platelet Count 326 K/uL (130-400); RDW Coefficient of Variation 14.1 % (11.5-14.5); Red Blood Count 3.87 M/uL (4.2-5.4); White Blood Count 37.39 K/uL (4.8-10.8)
[2019-07-17 11:35] LABS: Albumin Level 2.3 gm/dl (3.4-5.0); BUN Creatinine Ratio 8.1 (10-20); Calcium 8.4 mg/dl (8.5-10.1); Creatinine Clr Calc Pharmacy 139.6 ml/min; Est GFR (African American) 132.6; Est GFR (Non-African American) 114.4; Potassium 3.3 mmol/L (3.5-5.1)
[2019-07-17 11:38] LABS: Albumin Globulin Ratio 0.6 (0.9-2); Bilirubin,Total 0.6 mg/dl (0.2-1); Globulin 3.7 gm/dl (2.5-4.0)
--- NOTE | 2019-07-17 11:49 | Anesthesia Procedure Note ---
Date of Service July 17, 2019 Anesthesia Post Epidural Note Vital Signs Vital Signs: Temp Pulse Resp BP Pulse Ox 36.9 C 117 H 20 130/57 L 94 07/17/19 08:56 07/17/19 11:40 07/17/19 09:11 07/17/19 11:40 07/17/19 09:52 Pain Intensity Bilateral Abdomen: Pain Intensity: 3 Notes Mental Status: alert / awake / arousable and participated in evaluation Nausea / Vomiting: adequately controlled Pain: adequately controlled Airway Patency, RR, SpO2: stable & adequate BP & HR: stable & adequate Hydration State: stable & adequate Neuraxial Anesthesia: was administered and sensory block is resolving Anesthetic Complications: no major complications apparent and Pt Satisfied with anesthetic care Epidural: Removed without complications and With tip intact
[2019-07-17 12:08] LABS: Basophils # (auto) 0.02 K/uL (0-0.2); Basophils % (auto) 0.1 %; Immature Granulocytes # (auto) 0.31 K/uL (0.00-0.02); Immature Granulocytes % (auto) 0.8 %; Lymphocytes # (auto) 1.25 K/uL (1.2-3.4); Lymphocytes % (auto) 3.3 %; Monocytes # (auto) 2.26 K/uL (0.11-0.59); Neutrophils # (auto) 33.55 K/uL (1.4-6.5); Neutrophils % (auto) 89.8 %
[2019-07-17] MEDS ORDERED: NICOTINE 21 MG/24 HR TDSY TD SCH (13:00)
[2019-07-17 18:15] LABS: Hematocrit (blood only) 32.3 % (37-47); Hemoglobin 10.7 g/dL (12.0-16.0); Mean Corpuscular Hemoglobin 29.7 pg (25-34); Mean Corpuscular Hgb Conc 33.1 g/dL (32-36); Mean Corpuscular Volume 89.7 fL (80-100); Platelet Count 304 K/uL (130-400); RDW Coefficient of Variation 14.2 % (11.5-14.5); White Blood Count 40.75 K/uL (4.8-10.8)
[2019-07-17 18:37] LABS: Acanthocytes 1+; Basophils # (auto) 0.03 K/uL (0-0.2); Basophils % (auto) 0.1 %; Eosinophils # (auto) 0.03 K/uL (0-0.5); Eosinophils % (auto) 0.1 %; Immature Granulocytes # (auto) 0.28 K/uL (0.00-0.02); Immature Granulocytes % (auto) 0.7 %; Lymphocytes # (auto) 2.95 K/uL (1.2-3.4); Lymphocytes % (auto) 7.2 %; Monocytes # (auto) 3.83 K/uL (0.11-0.59); Monocytes % (auto) 9.4 %; Neutrophils # (auto) 33.63 K/uL (1.4-6.5); Neutrophils % (auto) 82.5 %
[2019-07-17] MEDS ORDERED: DOCUSATE SODIUM 100 MG CAP PO SCH (21:00)
[2019-07-18 01:01] VITALS: O2SAT 96
[2019-07-18 04:49] LABS: Hematocrit (blood only) 26.3 % (37-47); Hemoglobin 8.8 g/dL (12.0-16.0); Mean Corpuscular Hemoglobin 29.7 pg (25-34); Mean Corpuscular Hgb Conc 33.5 g/dL (32-36); Mean Corpuscular Volume 88.9 fL (80-100); Mean Platelet Volume 11.7 fL (7.4-10.4); Platelet Count 280 K/uL (130-400); RDW Coefficient of Variation 14.1 % (11.5-14.5); RDW Standard Deviation 46.2 fL (36.4-46.3); Red Blood Count 2.96 M/uL (4.2-5.4); White Blood Count 37.71 K/uL (4.8-10.8)
[2019-07-18 05:09] VITALS: BP 119/77; PULSE 80; TEMP 98.1
[2019-07-18 05:16] LABS: Basophils # (auto) 0.05 K/uL (0-0.2); Basophils % (auto) 0.1 %; Echinocytes 1+; Eosinophils # (auto) 0.16 K/uL (0-0.5); Eosinophils % (auto) 0.4 %; Immature Granulocytes # (auto) 0.26 K/uL (0.00-0.02); Immature Granulocytes % (auto) 0.7 %; Lymphocytes # (auto) 4.94 K/uL (1.2-3.4); Lymphocytes % (auto) 13.1 %; Monocytes # (auto) 4.05 K/uL (0.11-0.59); Monocytes % (auto) 10.7 %; Neutrophils # (auto) 28.25 K/uL (1.4-6.5); Polychromasia 1+
--- NOTE | 2019-07-18 05:28 | Obstetrical Progress Note ---
Date of Service July 18, 2019 Assessment & Plan (1) : PPD#1 doing well. Pumping in room. Baby has been sent to [facility] for spontaneous pneumothorax. Patient wants to get to NICU to be with baby as soon as possible. Patient is feeling well this morning. Her WBC is elevated - 37 yesterday, 40 on repeat, 37 then again this morning. She is afebrile, does not have tachycardia, and is feeling well. I suspect this is most likely due to the fact that she has just delivered yesterday and has no spleen. She states her WBC has been this high before, and was told by hematology that this is just because of her asplenia. This is likely the cause this time. Patient is aware that she will need to repeat CBC in 1 week outpatient. She is to go to the ER at any sign of feeling unwell - fever, chills, nausea, vomiting, depression, heavy bleeding. She is going to the methadone clinic this morning for redosing after leaving the hospital. volunteer services director has been in contact with [facility], and per social sciences department chair note has already contacted [facility] and they will follow up with patient. Karen tells me that she has an appointment with [facility] on Saturday. Reviewed discharge instructions, followup in office in 6 w. Subjective Ambulation: ambulating normally Voiding: no voiding problems Diet Tolerance:: regular diet Lochia:: Moderate Feeding Type:: breast feeding Review of Systems All systems reviewed & are unremarkable except as noted in HPI & below Physical Exam Constitutional WD/WN, vitals as above no acute distress Respiratory normal respiratory effort Cardiovascular Rate/Rhythm: regular rate and regular rhythm Gastrointestinal (Abdomen) Inspection/Auscultation: abdomen normal to inspection; abdomen not distended Percussion/Palpation: abdomen soft Genitourinary OB Exam Abdomen: + fundal height Fundus: + firm; not tender Results & Data Vital Signs (Past 12 Hours) Vital Signs Temp Pulse Pulse Resp BP BP Pulse Ox 07/18/19 04:55 36.7 C 80 18 119/77 96 07/17/19 23:15 37.0 C 77 20 101/64 96 07/17/19 20:35 37.0 C 87 20 130/80 99 07/17/19 18:00 36.9 C 101 H 18 105/73
[2019-07-18] MEDS ORDERED: PRENATAL VITAMIN 1 TAB PO SCH (08:00)
[2019-07-18] MEDS ORDERED: bisacodyL 5 MG TABEC PO SCH (20:00)
== END 2019-07-18 06:40 | disposition home or self-care (01) | DRG 806 ==
LOC: 4S1 07-16 08:11 → 4S2 07-17 12:56